=== PATIENT | male | born 1990 | race Caucasian/White ===

== ENCOUNTER → 2016-09-02 | Emergency (ER) | payer OTHER ==
[~2016-09-02] VITALS: Ht 180.3 cm; Wt 81.8 kg
[~2016-09-02] MED LIST: IBUP800T25 PO; IBUPROFEN 800 MG TAB PO ONE
[2016-09-02 12:40] VITALS: Ht 180.3 cm; Wt 81.8 kg
--- NOTE | 2016-09-02 13:21 | ERD ---
ER Documentation Chief Complaint Date/Time DATE: 09/02/16 TIME: 13:19 Chief Complaint RIGHT RIB PAIN AFTER GETTING TACKLED BY PD OFFICERS, NO KO HPI This is a 25-year-old male who presents to the emergency room for evaluation of right-sided rib pain. This patient is brought in by [employer]. He was tackled by [employer] officers with no loss of consciousness. He was seen at [facility] earlier, no x-ray was obtained and he was discharged back to intermediate. In general he continues to complain of right-sided rib pain and was brought to the emergency room for evaluation. Patient localizes pain to the right portion of his ribs, describes as achy pain worse with movement. ROS All systems reviewed and are negative except as per history of present illness. PMhx/Soc Medical and Surgical Hx: pt denies Medical Hx, pt denies Surgical Hx Hx Alcohol Use: Yes Hx Substance Use: Yes Hx Tobacco Use: Yes Smoking Status: Current every day smoker Physical Exam Vitals Vital Signs Date Time Temp Pulse Resp B/P Pulse Ox O2 Delivery O2 Flow Rate FiO2 09/02/16 12:40 98.5 77 17 144/65 98 Physical Exam INITIAL VITAL SIGNS: Reviewed by me GENERAL: The patient is well developed and appropriate for usual state of health in no apparent distress HEENT: Pupils equal, round, and reactive to light. EOMI. There is no scleral icterus. NECK: C-spine is soft and supple, there is no meningismus. There is no cervical lymphadenopathy. LUNGS: Clear to auscultation bilaterally. There are no rales, wheezes or rhonchi. HEART: Regular rate and rhythm, no murmurs, clicks, rubs or gallops. ABDOMEN: Soft, non-tender, non-distended. There are bowel sounds in all four quadrants. No rebound or guarding. EXTREMITIES: There is no peripheral cyanosis or edema. No focal swelling or erythema. NEUROLOGICAL: The patient moves all four extremities with 5/5 strength. Cranial nerves II - XII are intact. Normal gait. Alert and oriented SKIN: There is no apparent rash or petechiae. Musculoskeletal: Tenderness to palpation over the lateral aspect of the right lower rib cage, no paradoxical rib movements HEME/LYMPHATIC: There is no evidence of excessive bruising or lymphedema. PSYCHIATRIC: The patient does not appear anxious or depressed. Results 24 hrs Current Medications Medications (Trade) Dose Ordered Sig/Momo Route PRN Reason Start Time Stop Time Status Last Admin Dose Admin Ibuprofen (Motrin) 800 mg ONCE ONCE PO 09/02/16 13:00 09/02/16 13:01 DC 09/02/16 12:46 Procedures/MDM X-ray Ribs 2V Interpreted by me: Soft Tissue: No acute abnormalities Bones: No acute abnormalities Mediastinum/Cardiac Silhouette/Lungs: [No acute abnormalities] This 25-year-old male presents to the ER for evaluation of right-sided rib pain. This patient was involved in altercation with police and was tackled to the ground. He complained of right-sided rib pain and was tender on my examination. No paradoxical chest wall motion. Rib x-ray does not show any signs of acute fracture. The patient was given Motrin, when I reevaluated him he was sleeping and in no acute distress. He will be discharged back into police custody at this time. Departure Diagnosis: Primary Impression: Contusion of rib on right side Condition: Stable PAULINE RUSSELL DO Sep 02, 2016 13:21
--- NOTE | 2016-09-02 13:22 | RADRPT ---
PROCEDURE: XR Right Ribs and chest CLINICAL INDICATION: Pain, rule out fracture TECHNIQUE: The study consists of a portable AP chest an oblique view of the right ribs. The images were reviewed on a PACS workstation. COMPARISON: None. FINDINGS: Cardiovascular structures: The cardiovascular structures appear unremarkable. Lung barrios: The lung barrios are clear. Pleural spaces: No pneumothorax or pleural fluid accumulation is evident. Osseous structures: The right ribs and other osseous structures appear intact. IMPRESSION: 1. No right rib fracture or destruction is identified. 2. Unremarkable portable chest. Physician Grace Date Time Electronically viewed and signed by Physician Grace on 09/02/2016 13:22 /
== END ==
LOC: E/R 12:31
DX: S20.219A Contusion of unspecified front wall of thorax, initial encounter (principal); F17.210 Nicotine dependence, cigarettes, uncomplicated; X58.XXXA Exposure to other specified factors, initial encounter; Y92.9 Unspecified place or not applicable
CPT/HCPCS: 71100